=== PATIENT | male | born 1970 | race Caucasian/White ===

== ENCOUNTER → 2016-07-18 | Outpatient (CLI) | payer BC ==
--- NOTE | 2016-07-19 09:27 | DX ---
"Right Shoulder - Three Views Indication: Fall. Pain. Comparison: None. Findings: The bones are anatomically aligned. No acute fracture. The acromioclavicular and coracoclav icular intervals are normal. Small osteophytes emanate off the undersurface of the acromioclavicular joint, the subacromial space is minimally narrowed, and mild sclerosis is present at the humeral head near the insertion of the rotator cuff. A bony stalk emanating off the lateral proximal humeral meta diaphysis, measuring 5 mm in diameter x 16 mm in length, has features of an osteochondroma with minim ally irregular cap. Impression: 1. No acute fracture or AC separation. 2. Features of rotator cuff impingement. 3. 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 Recommend MRI of the r ight shoulder without and with contrast to optimally characterize. Comment: I have reviewed the case with Dr. Tee Thornton who agrees with the findings and recomm endations. A Follow-Up Required test result has been communicated via the [employer] | Critical Result syst em on 07/19/2016 9:22, Message ID [id number]."
== END ==
LOC: CIMAGING 16:30
PROVIDERS: ATTEND Family Medicine
DX: M25.511 Pain in right shoulder (principal)
CPT/HCPCS: 73030-PO

== ENCOUNTER → 2016-07-30 | Outpatient (CLI) | payer BC ==
[~2016-07-30] MED LIST: GADOBUTROL 10 ML VIAL IVP ONE
== END ==
LOC: FIMAGING 19:23
PROVIDERS: ATTEND Family Medicine
DX: M85.811 Other specified disorders of bone density and structure, right shoulder (principal); M67.3 Transient synovitis; M75.21 Bicipital tendinitis, right shoulder
CPT/HCPCS: A9585

== ENCOUNTER → 2018-09-22 | Outpatient (CLI) | payer OTHER | LOC: CIMAGING 14:40 | PROVIDERS: ATTEND Family Medicine | DX: M54.5 Low back pain (principal); M51.36 Other intervertebral disc degeneration, lumbar region; M51.37 Other intervertebral disc degeneration, lumbosacral region | CPT/HCPCS: 72100-PO ==